=== PATIENT | male | born 1960 | race Caucasian/White ===

== ENCOUNTER → 2016-10-06 | Outpatient (CLI) | payer MEDICARE ==
--- NOTE | 2016-10-08 14:15 | US ---
Procedure: US CAROTID DOPPLER BILATERAL Exam Date: 10/06/2016 Ordering Provider: CRISTI MAHER Clinical Indication: SYNCOPE Comparison: None TECHNIQUE : Real-time cerebrovascular ultrasonography was obtained from sternal notch to the angle of the mandible bilaterally utilizing chavez scale, color flow and spectral Doppler analysis. Systolic velocity ratios were calculated for internal carotid artery to common carotid artery bilaterally. FINDINGS: RIGHT CAROTID BIFURCATION: No significant atherosclerotic plaque. Peak systolic and end-diastolic velocities in the right internal carotid artery are 65 and 12 cm/s. Internal carotid/common carotid ratio is 0.9. Right vertebral flow is antegrade. LEFT CAROTID BIFURCATION: No significant atherosclerotic plaque. Peak systolic and end-diastolic velocities in the left internal carotid artery are 83 and 36 cm/s. Internal carotid/common carotid ratio is 1.0. Left vertebral flow is antegrade. IMPRESSION: 1. No significant atherosclerotic plaque in each carotid bulb and ICA origin. 2. There is no significant stenosis (less than 50%) at either ICA origin. 3. Bilateral antegrade vertebral artery flow. Electronically signed by: Aristides Ibarra MD 10/08/2016 2:13 PM CDT
== END ==
LOC: US 13:44
PROVIDERS: ATTEND Internal Medicine Interventional Cardiology
DX: R55 Syncope and collapse (principal); R06.02 Shortness of breath

== ENCOUNTER → 2017-06-07 | Outpatient (CLI) | payer MEDICARE ==
--- NOTE | 2017-06-07 13:41 | US ---
EXAM DESCRIPTION: Breast,Right: Ultrasound CLINICAL HISTORY: 56 yearsMaleBREAST LUMP COMPARISON: Digital 3-D tomosynthesis mammography bilateral breast on this visit. TECHNIQUE: Transcutaneous scanning of the bilateral breast utilizing two-dimensional and Doppler modes. Scanning performed by the ornamental metal erector and Dr. Briones. FINDINGS: Scanning retroareolar breasts bilaterally. Hypoechoic tissue posterior to the right nipple with angular and spiculated margins. Parallel orientation. Mixed posterior features. Consistent with gynecomastia. IMPRESSION: 1. Bi-Rads Category 3: Probably Benign Findings. 2. Please refer to bilateral 3-D tomosynthesis diagnostic breast mammography examination and report on this visit. The FINDINGS and the follow-up plan were reviewed in person with the patient after the examination. Written communication explaining the IMPRESSION and follow-up will be mailed to the patient and referring care provider. Electronically signed by: Elie Briones MD 06/07/2017 1:40 PM CLIENT ONBOARDING ANALYST
--- NOTE | 2017-06-07 13:41 | MAM ---
EXAM DESCRIPTION: 3D Diagnostic, Bilateral: Digital Mammography CLINICAL HISTORY: 56 yearsMaleBREAST LUMP probable lump around the right nipple. Mother with breast cancer. COMPARISON: Bilateral targeted breast ultrasound following this examination. No prior mammograms. No prior reports available. TECHNIQUE: Bilateral CC LM MLO projection full-field images, 3-D tomosynthesis digital mammographic technique. Also bilateral synthesized CC MLO LM full-field images. CAD not utilized. FINDINGS: The breast parenchymal density pattern is: Almost entirely fatty. No skin thickening or nipple retraction Skin marker is present on the medial aspect of the right nipple. Mass density in the retroareolar right breast which is palpable. Denser than the surrounding mostly fatty tissues. Partially lobulated and spiculated margins. Minimal fibroglandular tissues in the retroareolar left breast. Consistent with gynecomastia. Ultrasound: Scanning retroareolar breasts bilaterally. Hypoechoic tissue posterior to the right nipple with angular and spiculated margins. Parallel orientation. Mixed posterior features. Consistent with gynecomastia. IMPRESSION: BI-RADS CATEGORY: 3 - PROBABLY BENIGN. Management: Short interval (6-month) follow-up digital mammography and continued surveillance ultrasound. The FINDINGS and the follow-up plan were reviewed in person with the patient after the examination. Written communication explaining the IMPRESSION and follow-up will be mailed to the patient and referring care provider. Electronically signed by: Elie Briones MD 06/07/2017 1:39 PM DIRECTOR OF STAFF DEVELOPMENT
== END | disposition home or self-care (01) ==
LOC: US 09:51
PROVIDERS: ATTEND Nurse Practitioner Family
DX: N63.0 Unspecified lump in unspecified breast (principal)
CPT/HCPCS: 76641; G0204; G0279

== ENCOUNTER → 2018-08-21 | Outpatient (CLI) | payer MEDICARE ==
--- NOTE | 2018-08-21 14:53 | CT ---
EXAM DESCRIPTION: Chest w/o Contrast : Computed Tomography. CLINICAL HISTORY: 58 years Male COUGH COMPARISON: CT chest and thorax with contrast 10/05/2008 TECHNIQUE: Spiral-axial scans at 5 x 5 mm intervals through the lungs and thorax without IV contrast. 2.5 x 5 mm lung algorithm axial reconstructions. Coronal and sagittal 2.0 Mm reconstructions. Total Exam DLP: 548.15 mGy-cm. This exam was performed according to our departmental dose-optimization program which includes automated exposure control, adjustment of the mA and/or kV according to patient size and/or use of iterative reconstruction technique; to reduce radiation dose to as low as reasonably achievable (ALARA). Nodule measurements under 10 mm are given as mean value of 3 axes diameters. FINDINGS: Lungs and large airways: Large pleural parenchymal scar or collapsed segment or subsegment in the left upper lobe not seen on the prior study. Involves the medial pleura, medial hilum, and lateral pleura. Minimal basilar atelectasis posteriorly and bilaterally. No abnormal nodules. No masses. No focal infiltrates. Pleural spaces: No effusion or pneumothorax bilaterally. Prominent anterior left epicardial fat pad extending into the base of the left major fissure. Mediastinum and Inés: No significantly enlarged lymph nodes or soft tissue masses. Great vessels and Heart: Coronary artery calcification. Coronary artery stents. Atherosclerotic calcification in the aortic arch. Soft tissues of neck base, axillae, and chest wall: No enlarged lymph nodes. Slightly more retroareolar density right breast compared to the left. Thyroid is unremarkable. Upper abdomen: No free fluid or free air in the included peritoneal. No fatty stranding or fascial fascial thickening. Adrenal glands and spleen normal size and density. Gallbladder visualized. Osseous structures: Spondylosis inferior thoracic spine. 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 No lytic or blastic lesions. IMPRESSION: Previous collapse or inflammatory process in the subsegment of the left medial upper lobe. Not seen on the prior study 10 years ago. No acute infiltrates. No abnormal nodules or masses. No further CT follow-up is recommended. Mild gynecomastia right breast. Coronary artery atherosclerotic calcifications. Bilateral sternoclavicular and right glenohumeral arthrosis. Electronically signed by: Elie Briones MD 08/21/2018 2:50 PM PLASTIC WORKER
== END ==
LOC: CT 09:32
PROVIDERS: ATTEND General Practice
DX: R05 Cough (principal); I25.10 Atherosclerotic heart disease of native coronary artery without angina pectoris; N62 Hypertrophy of breast

== ENCOUNTER 2019-12-18 00:06 | Emergency (ER) | payer MEDICARE ==
[2019-12-18 00:28] VITALS: TEMP 98.4
[2019-12-18] MEDS ORDERED: diphenhydrAMINE HCL 50 MG/ML VIAL IV ONE ×2 (00:34→01:51)
[2019-12-18] MEDS ORDERED: FAMOTIDINE IV PREMIX 20 MG in PREMIX BAG 1 BAG IVPB ONE (00:34)
[2019-12-18] MEDS ORDERED: DEXAMETHASONE INJ 10 MG/ML VIAL IV ONE (00:34)
[2019-12-18] MEDS ORDERED: SODIUM CHLORIDE 0.9% 1000ML 1,000 ML IVS ONE (00:34)
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
[2019-12-18 01:18] VITALS: O2SAT 98
[2019-12-18 03:02] VITALS: BP 130/80
== END 2019-12-18 02:50 | disposition home or self-care (01) ==
LOC: ER 00:06
DX: L29.9 Pruritus, unspecified (principal); E11.9 Type 2 diabetes mellitus without complications; E78.5 Hyperlipidemia, unspecified; I50.9 Heart failure, unspecified; Z86.73 Personal history of transient ischemic attack (TIA), and cerebral infarction without residual deficits
CPT/HCPCS: J1100; J1200; J3490; J7030

== ENCOUNTER 2020-01-03 20:12 | Emergency (ER) | payer MEDICARE ==
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
--- NOTE | 2020-01-03 21:32 | RAD ---
EXAM: AP CHEST RADIOGRAPH CLINICAL INDICATION: Cough. COMPARISON: Compared to the chest radiographs performed September 01, 2011. FINDINGS: Cardiac size and pulmonary vasculature are normal. New subtle bibasilar consolidations and new left apical scar versus atelectasis. No pleural effusions. No pneumothorax, pneumomediastinum or free peritoneal gas. No hilar or mediastinal lymphadenopathy. No mediastinal widening. Bones are intact on this single view. IMPRESSION: New subtle bibasilar consolidations suspicious for atypical pneumonia. New left apical scar versus atelectasis. Electronically signed by: Oli Hampton MD 01/03/2020 9:30 PM CDT
[2020-01-03 21:34] VITALS: O2SAT 99
[2020-01-03] MEDS ORDERED: SODIUM CHLORIDE 0.9% 1000ML 1,000 ML IVS ONE (22:50)
[2020-01-03] MEDS ORDERED: AZITHROMYCIN IV 500 MG in SODIUM CHLORIDE 0.9% 250ML 250 ML IVPB ONE (22:50)
[2020-01-03] MEDS ORDERED: SODIUM CHLORIDE 0.9% (FLUSH) 10 ML SYG ONE (22:55)
[2020-01-04 00:06] VITALS: BP 134/89
[2020-01-04 00:38] VITALS: TEMP 97.5
== END 2020-01-04 00:28 | disposition home or self-care (01) ==
LOC: ER 20:12
DX: J18.9 Pneumonia, unspecified organism (principal); R94.4 Abnormal results of kidney function studies; I50.9 Heart failure, unspecified; E10.9 Type 1 diabetes mellitus without complications; Z79.4 Long term (current) use of insulin; Z79.01 Long term (current) use of anticoagulants; Z79.899 Other long term (current) drug therapy
CPT/HCPCS: 71045; 80053; 85025; 87502; A4216; J0456; J7030; J7050; U0002

== ENCOUNTER → 2020-02-09 | Outpatient (CLI) | payer MEDICARE ==
--- NOTE | 2020-02-09 12:58 | RAD ---
2 radiographs left hip. 2 radiographs right hip. Single radiograph pelvis. Indication: PAIN IN LEFT HIP Comparison: None. Impression: Mild bilateral hip osteoarthritis with joint space narrowing and tiny osteophytes. Mild pubic symphysis osteoarthritis. No acute fracture of the right hip, left left hip, or pelvis identified. Electronically signed by: Anjum Salas MD 02/09/2020 12:56 PM CDT
== END ==
LOC: RAD 09:39
PROVIDERS: ATTEND Orthopaedic Surgery
DX: M16.0 Bilateral primary osteoarthritis of hip (principal); M25.751 Osteophyte, right hip; M25.752 Osteophyte, left hip

== ENCOUNTER 2020-02-14 18:09 | Emergency (ER) | payer MEDICARE ==
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
[2020-02-14 18:28] VITALS: TEMP 96.7
[2020-02-14] MEDS ORDERED: SODIUM CHLORIDE 0.9% 500ML 500 ML IVS PRN (18:28)
--- NOTE | 2020-02-14 19:03 | RAD ---
CT HEAD WITHOUT IV CONTRAST XR CHEST 1 VIEW HISTORY: Dizziness. History of stroke. Shortness of breath. COMPARISON: None. TECHNIQUE: 1. CT scan of the brain was performed without IV contrast. 2. Single AP view of the chest was submitted for interpretation. This exam was performed according to our departmental dose-optimization program, which includes automated exposure control, adjustment of the mA and/or kV according to patient size and/or use of iterative reconstruction technique. FINDINGS: There is an area of encephalomalacia in the left parietal lobe. No evidence of acute infarction, intracranial hemorrhage, extra-axial fluid collection, or midline shift. No air-fluid levels are seen in the paranasal sinuses to suggest acute sinusitis. No depressed skull fracture. The heart size is enlarged with mild central pulmonary vascular congestion. No consolidation, pleural effusion, or pneumothorax is seen. The bony structures are preserved. IMPRESSION: 1. No acute intracranial findings. 2. Old left parietal lobe infarct. 3. Mild pulmonary edema pattern, without pleural effusions or focal consolidation. Electronically signed by: Joseluis Zhou MD 02/14/2020 7:01 PM CDT
[2020-02-14 20:03] VITALS: BP 128/81; O2SAT 96
== END 2020-02-14 19:57 | disposition home or self-care (01) ==
LOC: ER 18:09
DX: E86.0 Dehydration (principal); R42 Dizziness and giddiness; F32.9 Major depressive disorder, single episode, unspecified; E11.9 Type 2 diabetes mellitus without complications; R56.9 Unspecified convulsions; I69.351 Hemiplegia and hemiparesis following cerebral infarction affecting right dominant side; Z79.01 Long term (current) use of anticoagulants
CPT/HCPCS: 70450; 71046; 80053; 83880; 84484; 85025; 85610; 85730; 93005; J7040

== ENCOUNTER 2020-03-19 21:27 | Emergency (ER) | payer MEDICARE ==
[2020-03-19 22:04] VITALS: TEMP 97.4; O2SAT 97
--- NOTE | 2020-03-19 22:55 | ED.PDOC ---
History of Present Illness - General Chief Complaint: Diabetic Complaint Stated Complaint: low blood sugar issue Time Seen by Provider: 03/19/20 21:54 - History of Present Illness Initial Comments: 59 yo M PMH low blood pressure HL CVA and DM presents to ED son in law at bedside after episode of lwo blood sugar and vomiting after taking insulin and eating minimal food about 4 hours prior to arrival. Pt. given D10 enroute and a te turkey and drank orange juice in ED with no vomiting or abdominal pain. Has PMD Dr. Linder for follow up and can go home to stay in son in laws house tonight. Denies fever cough sob recent travel or conmtact wityh covid 19. Denies any other medicine for diabetes except insulin no sulfonylureas. Denies fever chills admits one episode nausea vomiting non bilious non bloody denies diarrhea chest pain sob diaphoresis. No change in diet rest bowel or bladder otherwise denies drinking or smoking admits FH HTN DM has PMD for follow up no other c/o today. PPE worn-N95 surgical mask with attached face shield over N95 goggles gloves and face shield over that Allergies/Adverse Reactions: Allergies Coffee Flavor Allergy (Verified 03/15/20 20:45) Psyllium [From Metamucil] Allergy (Verified 03/15/20 20:45) Home Medications: Ambulatory Orders Apixaban [Eliquis] 5 mg PO DAILY 12/18/19 Atorvastatin Calcium 40 mg PO DAILY 12/18/19 Benzonatate Perles [Tessalon Perles] 100 mg PO PRN 12/18/19 Cholecalciferol [Vitamin D-3] 5,000 units PO DAILY 12/18/19 DiphenhydrAMINE HCL [Benadryl] 50 mg PO BEDTIME 5 Days cap 12/18/19 Divalproex Sodium [Depakote ER] 750 mg PO BID 12/18/19 Famotidine [Pepcid Tab] 20 mg PO BID 5 Days tab 12/18/19 Gabapentin [Neurontin] 600 mg PO 12/18/19 Levetiracetam [Keppra] 1,500 mg PO BID 12/18/19 Magnesium 800 mg PO BID 12/18/19 Metoclopramide HCl [Reglan] 5 mg PO BEDTIME 12/18/19 Prednisone 40 mg PO DAILY 5 Days #10 tab 12/18/19 Sertraline HCl [Zoloft] 50 mg PO BEDTIME 12/18/19 Azithromycin [Zithromax Z-Singh] 250 mg PO DAILY #6 tab 01/03/20 Meclizine HCl 25 mg PO TID PRN #21 tab 02/14/20 Review of Systems - Review of Systems Constitutional: States: see HPI EENTM: States: see HPI Respiratory: States: see HPI Cardiology: States: see HPI Gastrointestinal/Abdominal: States: see HPI Genitourinary: States: see HPI Musculoskeletal: States: see HPI Skin: States: see HPI Neurological: States: see HPI Endocrine: States: see HPI All other Systems: Reviewed and Negative Past Medical History (General) - Patient Medical History Hx Seizures: Yes Hx Stroke: Yes Hx Dementia: No Hx Asthma: No Hx of COPD: No Hx Cardiac Disorders: Yes - OR Hx Congestive Heart Failure: Yes Hx Pacemaker: No Hx Hypertension: No Hx Thyroid Disease: No Hx Diabetes: Yes Hx Gastroesophageal Reflux: No Hx Renal Disease: No Hx Cancer: No Hx of HIV: No Hx Hepatitis C: No Hx MRSA: No MRSA Source:: Wound Surgical History: other - Vaccination History Hx Tetanus, Diphtheria Vaccination: Yes Hx Influenza Vaccination: No Hx Pneumococcal Vaccination: Yes - Social History Hx Tobacco Use: No Hx Chewing Tobacco Use: No Hx Alcohol Use: No Hx Substance Use: No Hx Substance Use Treatment: No Hx Depression: No Feels Threatened In Home Enviroment: No Feels Threatened In a Relationship: No Hx Physical Abuse: No Hx Emotional Abuse: No Hx Suspected Abuse: No - Triage Comment ED Triage Comment: The patient was alert and answered all questions for EMS he had no noted complaints at the time of assessment and denied chest pain, shortness of breath, and nausea. He did have deficits to the right side from a previous stroke but no acute changes noted. Family Medical History - Family History Mother Family History: No Known Physical Exam - Physical Exam General Appearance: No apparent distress Eye Exam: bilateral normal Ears, Nose, Throat: normal ENT inspection Neck: non-tender, full range of motion Respiratory: no respiratory distress Cardiovascular/Chest: regular rate, rhythm Gastrointestinal/Abdominal: non tender, soft Rectal Exam: deferred Back Exam: normal inspection Extremity: normal range of motion, non-tender Neurologic: no motor/sensory deficits Skin Exam: normal color, warm/dry Progress - Progress Progress: 03/19/20 22:56 A/M-[id number] labs corrugator reassess EKG-non specific TW changes No STEMI sinus arrhythmia throughout 87bpm Laboratory Tests 03/19/20 22:10 WBC 6.8 RBC 4.17 L Hgb 12.6 L Hct 36.8 L MCV 88.2 MCH 30.2 MCHC 34.2 RDW 15.8 H Plt Count 197 MPV 10.3 Absolute Neuts (auto) 4.40 Absolute Lymphs (auto) 1.60 Absolute Monos (auto) 0.60 Absolute Eos (auto) 0.10 Absolute Basos (auto) 0.10 Neutrophils % 65.2 Lymphocytes % 24.2 Monocytes % 9.0 Eosinophils % 0.7 L Basophils % 0.9 EXAM DESCRIPTION: Chest,1 View CLINICAL HISTORY: hypoglycemia vomit COMPARISON: 03/15/2020 FINDINGS: Single frontal radiograph view of the chest. Cardiomediastinal silhouette: Normal size and contour. Lungs: No consolidation, pneumothorax, or pleural effusion. Stable linear scarring in the left upper lobe. Bones: No acute osseous abnormality. Upper abdomen: No abnormality identified. IMPRESSION: 1. No acute pneumonic process identified. Electronically signed by: Kenyon Marcelo 03/19/2020 10:52 PM CDT Workstat ion: [id number] - Results/Orders Results/Orders: Laboratory Tests 03/19/20 03/19/20 03/19/20 22:10 22:10 22:10 WBC 6.8 RBC 4.17 L Hgb 12.6 L Hct 36.8 L MCV 88.2 MCH 30.2 MCHC 34.2 RDW 15.8 H Plt Count 197 MPV 10.3 Absolute Neuts (auto) 4.40 Absolute Lymphs (auto) 1.60 Absolute Monos (auto) 0.60 Absolute Eos (auto) 0.10 Absolute Basos (auto) 0.10 Neutrophils % 65.2 Lymphocytes % 24.2 Monocytes % 9.0 Eosinophils % 0.7 L Basophils % 0.9 PT 10.9 INR 1.10 PTT (SP) 22.7 Sodium 139 Potassium 5.2 H Chloride 105 Carbon Dioxide 25 Anion Gap 14.2 BUN 30 H Creatinine 1.93 H BUN/Creatinine Ratio 15.5 Random Glucose 72 Serum Osmolality 282.3 Calcium 9.8 Total Bilirubin 0.3 AST 19 ALT 26 Alkaline Phosphatase 44 Troponin I Serum Total Protein 7.0 Albumin 3.7 Globulin 3.3 Albumin/Globulin Ratio 1.1 Lipase 35 03/19/20 22:10 WBC RBC Hgb Hct MCV MCH MCHC RDW Plt Count MPV Absolute Neuts (auto) Absolute Lymphs (auto) Absolute Monos (auto) Absolute Eos (auto) Absolute Basos (auto) Neutrophils % Lymphocytes % Monocytes % Eosinophils % Basophils % PT INR PTT (SP) Sodium Potassium Chloride Carbon Dioxide Anion Gap BUN Creatinine BUN/Creatinine Ratio Random Glucose Serum Osmolality Calcium Total Bilirubin AST ALT Alkaline Phosphatase Troponin I < 0.02 Serum Total Protein Albumin Globulin Albumin/Globulin Ratio Lipase Spoke to Daughter and Father at bedside who reveal he has been rooutinely taking 25 units of insulin which is clearly too high. Advised to hold insulin until PMD follow up on Sunday and take no insulin without regular finger sticks. No more than 8 units at a time and only for glucose of 350-400. Daughter understands and agrees with plan of care. Departure - Departure Clinical Impression: Hypoglycemia Time of Disposition: 00:26 Disposition: Discharge to Home or Self Care Condition: Good Departure Forms: ED Discharge - Pt. Copy, Patient Portal Self Enrollment Instructions: DI for Diabetes Type 2 Referrals: Dario Linder MD [Primary Care Provider] - 1-2 Days Home Medications: Ambulatory Orders Apixaban [Eliquis] 5 mg PO DAILY 12/18/19 Atorvastatin Calcium 40 mg PO DAILY 12/18/19 Benzonatate Perles [Tessalon Perles] 100 mg PO PRN 12/18/19 Cholecalciferol [Vitamin D-3] 5,000 units PO DAILY 12/18/19 DiphenhydrAMINE HCL [Benadryl] 50 mg PO BEDTIME 5 Days cap 12/18/19 Divalproex Sodium [Depakote ER] 750 mg PO BID 12/18/19 Famotidine [Pepcid Tab] 20 mg PO BID 5 Days tab 12/18/19 Gabapentin [Neurontin] 600 mg PO 12/18/19 Levetiracetam [Keppra] 1,500 mg PO BID 12/18/19 Magnesium 800 mg PO BID 12/18/19 Metoclopramide HCl [Reglan] 5 mg PO BEDTIME 12/18/19 Prednisone 40 mg PO DAILY 5 Days #10 tab 12/18/19 Sertraline HCl [Zoloft] 50 mg PO BEDTIME 12/18/19 Azithromycin [Zithromax Z-Singh] 250 mg PO DAILY #6 tab 01/03/20 Meclizine HCl 25 mg PO TID PRN #21 tab 02/14/20
[2020-03-20] MEDS ORDERED: ALBUTEROL SULFATE 2.5 MG/3 ML VIAL NEB SCH (00:15)
[2020-03-20 00:26] VITALS: BP 134/84
== END 2020-03-20 00:36 | disposition home or self-care (01) ==
LOC: ER 21:27
DX: E11.649 Type 2 diabetes mellitus with hypoglycemia without coma (principal); R56.9 Unspecified convulsions; I25.2 Old myocardial infarction; I50.9 Heart failure, unspecified; Z86.73 Personal history of transient ischemic attack (TIA), and cerebral infarction without residual deficits; Z79.899 Other long term (current) drug therapy; Z88.4 Allergy status to anesthetic agent; Z79.01 Long term (current) use of anticoagulants; Z88.8 Allergy status to other drugs, medicaments and biological substances